=== PATIENT | female | born 1950 | race Caucasian/White ===

== ENCOUNTER 2022-10-08 09:26 | Outpatient (CLI) | payer MEDICARE, OTHER | END 2022-10-08 09:27 | disposition home or self-care (01) | LOC: CSHULT 09:26 | PROVIDERS: ATTEND Internal Medicine Nephrology | DX: N18.4 Chronic kidney disease, stage 4 (severe) (principal); Z90.711 Acquired absence of uterus with remaining cervical stump; Z90.89 Acquired absence of other organs; I51.9 Heart disease, unspecified; M19.90 Unspecified osteoarthritis, unspecified site; Z96.1 Presence of intraocular lens; I25.10 Atherosclerotic heart disease of native coronary artery without angina pectoris; E78.5 Hyperlipidemia, unspecified; G47.9 Sleep disorder, unspecified; R30.0 Dysuria; K21.9 Gastro-esophageal reflux disease without esophagitis; K90.0 Celiac disease; K86.81 Exocrine pancreatic insufficiency; M54.9 Dorsalgia, unspecified; Z12.83 Encounter for screening for malignant neoplasm of skin; E04.1 Nontoxic single thyroid nodule; N28.1 Cyst of kidney, acquired | CPT/HCPCS: 76536; 76770 ==